=== PATIENT | male | born 1955 | race Caucasian/White ===

== ENCOUNTER → 2016-08-28 | Outpatient (REF) | LOC: WSOH 11:31 | DX: Z01.83 Encounter for blood typing (principal) ==

== ENCOUNTER 2016-08-31 10:13 | Outpatient (RCR) | payer OTHER | END 2016-11-26 | LOC: WSOH | DX: S06.0X0A Concussion without loss of consciousness, initial encounter (principal); S01.01XA Laceration without foreign body of scalp, initial encounter; M25.562 Pain in left knee; W11.XXXA Fall on and from ladder, initial encounter; Y99.0 Civilian activity done for income or pay ==